=== PATIENT | male | born 1995 | race Two or more races ===

== ENCOUNTER 2020-04-22 13:52 | Outpatient (CLI) | payer OTHER | END 2020-04-22 13:56 | disposition home or self-care (01) | LOC: LAB 13:52 | PROVIDERS: ATTEND Emergency Medicine Pediatric Emergency Medicine | DX: Z03.818 Encounter for observation for suspected exposure to other biological agents ruled out (principal) ==

== ENCOUNTER → 2020-07-28 18:00 | Outpatient (CLI) | payer OTHER | END | disposition home or self-care (01) | LOC: PPH VACUNA 18:00 | DX: Z23 Encounter for immunization (principal) ==

== ENCOUNTER 2021-06-15 08:00 | Outpatient (CLI) | payer OTHER | END 2021-06-15 08:30 | disposition home or self-care (01) | LOC: PPH VACUNA 08:00 | PROVIDERS: ATTEND Emergency Medicine Pediatric Emergency Medicine | DX: Z23 Encounter for immunization (principal) ==

== ENCOUNTER 2021-08-13 11:15 | Outpatient (CLI) | payer OTHER | END 2021-08-13 11:25 | disposition home or self-care (01) | LOC: PPH VACUNA 11:15 | PROVIDERS: ATTEND Emergency Medicine Pediatric Emergency Medicine | DX: Z23 Encounter for immunization (principal) ==

== ENCOUNTER 2022-02-01 21:59 | Emergency (ER) | payer OTHER ==
[~2022-02-01] VITALS: Ht 172.7 cm; Wt 80.7 kg
[2022-02-02] MEDS ORDERED: XOPENEX0.63 MG/3 IH (00:06)
[2022-02-02] MEDS ORDERED: TUSNEL LIQUID178 ML PO (00:06)
[2022-02-02] MEDS ORDERED: ZITHROMAX500 MG PO (00:06)
== END 2022-02-02 00:21 | disposition home or self-care (01) ==
LOC: ER 21:59
DX: J06.9 Acute upper respiratory infection, unspecified (principal); Z20.822 Contact with and (suspected) exposure to COVID-19

== ENCOUNTER 2022-04-21 08:00 | Outpatient (CLI) | payer OTHER ==
[~2022-04-21 08:00] MED LIST: TUSNEL LIQUID178 ML PO; XOPENEX0.63 MG/3 IH; ZITHROMAX500 MG PO
== END 2022-04-21 08:05 | disposition home or self-care (01) ==
LOC: PPH VACUNA 08:00
PROVIDERS: ATTEND Emergency Medicine Pediatric Emergency Medicine
DX: Z23 Encounter for immunization (principal)

== ENCOUNTER 2023-10-04 15:00 | Outpatient (CLI) | payer OTHER | END 2023-10-04 15:10 | disposition home or self-care (01) | LOC: PPH VACUNA 15:00 | PROVIDERS: ATTEND Emergency Medicine Pediatric Emergency Medicine | DX: Z23 Encounter for immunization (principal) ==

== ENCOUNTER 2024-05-03 01:30 | Outpatient (CLI) | payer OTHER | END 2024-05-03 02:00 | disposition home or self-care (01) | LOC: PPH VACUNA 01:30 | PROVIDERS: ATTEND Emergency Medicine Pediatric Emergency Medicine | DX: Z23 Encounter for immunization (principal) ==

== ENCOUNTER 2025-05-16 15:30 | Outpatient (CLI) | payer OTHER | END 2025-05-16 15:40 | disposition home or self-care (01) | LOC: PPH VACUNA 15:30 | PROVIDERS: ATTEND Emergency Medicine Pediatric Emergency Medicine | DX: Z23 Encounter for immunization (principal) ==